=== PATIENT | male | born 1935 | race African-American/Black ===

== ENCOUNTER 2016-07-24 13:23 | Emergency (ER) | payer MEDICARE ==
[~2016-07-24] VITALS: Ht 177.8 cm; Wt 74.8 kg
[~2016-07-24 13:23] MED LIST: AMLO10TA4 PO; ASPI325T4 PO; CYCL10TA2 PO; MIR; OXYC5TAB PO; feosol; miralax; senna PO; tylenol PO
[2016-07-24 13:44] VITALS: BP 169/77
[2016-07-24 14:34] LABS: BASO % 1 % (0-3); EOS % 3 % (0-3); HEMATOCRIT 39.3 % (39.0-53.0); HEMOGLOBIN 13.3 g/dL (13.0-17.5); LYMPH # 1.9 x10^3/uL (1.0-4.8); LYMPH % 27 % (24-48); MEAN CORPUSCULAR HEMOGLOBIN 31 pg (25-35); MEAN CORPUSCULAR HGB CONC 34 g/dL (31-37); MEAN CORPUSCULAR VOLUME 90 fL (79-100); MONO % 11 % (0-9); NEUT % 58 % (31-73); PLATELET COUNT 364 x10^3/uL (140-400); RED BLOOD COUNT 4.36 x10^6/uL (4.30-5.70); WHITE BLOOD COUNT 7.1 x10^3/uL (4.0-11.0)
--- NOTE | 2016-07-24 15:51 | RAD ---
Bilateral shoulders, 07/24/2016: History: Shoulder pain There are moderate degenerative changes at the left glenohumeral joint. There is more extensive degenerative change at the AC joint with periarticular calcifications. There is spurring and soft tissue calcification the region of the left coracoclavicular ligament. The findings are compatible with trauma and secondary degenerative change. No acute left shoulder abnormality is detected. There are moderate hypertrophic degenerative changes at the right glenohumeral and acromioclavicular articulations. No acute fracture or dislocation is identified. There is a tendinous calcification adjacent to the right greater tuberosity. IMPRESSION: 1. 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 2. Moderate degenerative change at the right shoulder. 3. No acute bony abnormality is detected.
--- NOTE | 2016-07-24 15:54 | RAD ---
Right foot, 3 views, 07/24/2016: History: Right foot pain and swelling The bony structures are demineralized. There is a minimal hallux valgus deformity with mild degenerative change at the first MTP joint. There is a small bone erosion within the first metatarsal head. No acute fracture or dislocation is identified. There is mild diffuse soft tissue swelling about the foot. IMPRESSION: 1. Mild arthritic change. 2. No acute bony abnormality is detected.
[2016-07-24] MEDS ORDERED: HYDR-971 PO (16:17)
[2016-07-24] MEDS ORDERED: CEPH-264 PO (16:17)
--- NOTE | 2016-07-24 16:18 | PHYS DOC ---
Past Medical History Past Medical History: Hypertension Past Surgical History: Other Additional Past Surgical Histo: R knee surgery Smokin Pack Per Day Alcohol Use: None Drug Use: None Adult General Chief Complaint Chief Complaint: [facility] HPI Patient is a 80 year old male who presents with bilateral shoulder pain for one month. He denies any new injury to his shoulders. He's had surgery on both shoulders previously. He notes decreased range of motion in the shoulders due to pain. He denies any weakness or numbness. He has not had any chest pain or shortness of breath. Patient also complains of right foot swelling for approximately one week. He states that it is "sore." He denies any injury to the foot. He has not had any fevers. He has been taking aspirin for his pain at home. He does not currently have a PCP. Review of Systems Review of Systems Constitutional: Denies fever or chills. [] Respiratory: Denies cough or shortness of breath. [] Cardiovascular: Denies chest pain, palpitations. [] Musculoskeletal: Denies back pain. Reports bilateral shoulder pain and right foot pain. Integument: Denies rash or skin lesions. Reports right foot swelling and redness. Neurologic: Denies headache, focal weakness or sensory changes. [] All systems reviewed and negative unless otherwise stated in the HPI. Allergies Allergies Allergies Coded Allergies Type Severity Reaction Last Updated Verified No Known Drug Allergies 06/19/13 No Physical Exam Physical Exam Constitutional: Well developed, well nourished, no acute distress, non-toxic appearance. [] HENT: Normocephalic, atraumatic, oropharynx moist. [] Eyes: PERRLA, EOMI, conjunctiva normal, no discharge. [] Neck: Normal range of motion, no midline or paraspinal tenderness, supple, no stridor. [] Cardiovascular: Heart rate regular rhythm, no murmur. [] Lungs & Thorax: Bilateral breath sounds clear to auscultation without wheezes, rales, or rhonchi. [] Skin: Warm, dry, no rash. There is mild erythema and warmth of the right foot diffusely without abscess or sign of injury. Back: No midline tenderness, no CVA tenderness. [] Extremities: Bilateral shoulder tenderness at the A/C joints, ROM decreased bilaterally, no edema. 2+ radial and ulnar pulses bilaterally. Less than 2 second capillary refill in the fingers bilaterally. Light touch sensation intact in the fingers bilaterally. Equal strategic sourcing specialist strength bilaterally. There is no this of the elbows, wrists, or hands. Full range of motion of elbows, wrists, and hands. Extremities 2: Right hindfoot tenderness over the tarsal area with mild edema, erythema, and warmth. There is no tenderness of the right medial or lateral malleolus. There is no calf tenderness or swelling. 2+ DP and PT pulses. Less than 2 second capillary refill in the toes. Light touch sensation intact distally in the toes. Neurologic: Alert and oriented X 3, normal motor function, normal sensory function, no focal deficits noted. [] Psychologic: Affect normal, judgement normal, mood normal. [] Current Patient Data Vital Signs Vital Signs Date Time Temp Pulse Resp B/P Pulse Ox O2 Delivery O2 Flow Rate FiO2 07/24/16 13:44 97.8 85 18 169/77 98 Room Air 97.8 Lab Values Laboratory Tests Test 07/24/16 14:25 White Blood Count 7.1x10^3/uL (4.0-11.0) Red Blood Count 4.36x10^6/uL (4.30-5.70) Hemoglobin 13.3g/dL (13.0-17.5) Hematocrit 39.3% (39.0-53.0) Mean Corpuscular Volume 90fL (79-100) Mean Corpuscular Hemoglobin 31pg (25-35) Mean Corpuscular Hemoglobin Concent 34g/dL (31-37) Red Cell Distribution Width 15.0% (11.5-14.5) H Platelet Count 364x10^3/uL (140-400) Neutrophils (%) (Auto) 58% (31-73) Lymphocytes (%) (Auto) 27% (24-48) Monocytes (%) (Auto) 11% (0-9) H Eosinophils (%) (Auto) 3% (0-3) Basophils (%) (Auto) 1% (0-3) Neutrophils # (Auto) 4.1x10^3uL (1.8-7.7) Lymphocytes # (Auto) 1.9x10^3/uL (1.0-4.8) Monocytes # (Auto) 0.8x10^3/uL (0.0-1.1) Eosinophils # (Auto) 0.2x10^3/uL (0.0-0.7) Basophils # (Auto) 0.0x10^3/uL (0.0-0.2) Uric Acid 4.1mg/dL (3.5-7.2) Laboratory Tests 07/24/16 14:25 EKG EKG [] Radiology/Procedures Radiology/Procedures REASON: bilateral shoulder pain, decreased ROM PROCEDURE: SHOULDER BILAT 2+V Bilateral shoulders, 07/24/2016: History: Shoulder pain There are moderate degenerative changes at the left glenohumeral joint. There is more extensive degenerative change at the AC joint with periarticular calcifications. There is spurring and soft tissue calcification the region of the left coracoclavicular ligament. The findings are compatible with trauma and secondary degenerative change. No acute left shoulder abnormality is detected. There are moderate hypertrophic degenerative changes at the right glenohumeral and acromioclavicular articulations. No acute fracture or dislocation is identified. There is a tendinous calcification adjacent to the right greater tuberosity. IMPRESSION: 1. 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 2. Moderate degenerative change at the right shoulder. 3. No acute bony abnormality is detected. REASON: pain, swelling, no injury PROCEDURE: FOOT RIGHT 3V Right foot, 3 views, 07/24/2016: History: Right foot pain and swelling The bony structures are demineralized. There is a minimal hallux valgus deformity with mild degenerative change at the first MTP joint. There is a small bone erosion within the first metatarsal head. No acute fracture or dislocation is identified. There is mild diffuse soft tissue swelling about the foot. IMPRESSION: 1. Mild arthritic change. 2. No acute bony abnormality is detected. Course & Med Decision Making Course & Med Decision Making Pertinent Labs and Imaging studies reviewed. (See chart for details) Patient presents with atraumatic pain in the shoulders in the right foot. There is swelling, erythema, and warmth of the right foot. There are no acute findings on x-rays of the shoulders or foot. There is no leukocytosis or elevated uric acid on laboratory evaluation. The patient is discharged home with prescription for Keflex for right foot cellulitis and Van Etten for pain. He is given contact information for orthopedics for follow-up regarding his shoulder pain. Instructed to follow-up with his PCP in the next 2-3 days regarding the right foot swelling. Return precautions were discussed. He verbalizes understanding and agrees with plan. Yary Disclaimer Yary Disclaimer This electronic medical record was generated, in whole or in part, using a voice recognition dictation system. Departure Departure Impression: Primary Impression: Shoulder pain, bilateral Additional Impression: Cellulitis of foot, right Disposition: 01 HOME, SELF-CARE Condition: STABLE Referrals: BALAJI CANALES MD Patient Instructions: Cellulitis, [id number], Shoulder Pain, [id number] Additional Instructions: You appear to have an infection in the right foot causing the pain, swelling, and redness. Please complete all of the prescribed antibiotics, even if your foot is improving. Please follow up with a primary care provider in 2-3 days for recheck of your foot, sooner if concerns. Please take the prescribed pain medication as directed. Do not drive or operate heavy machinery while taking pain medication. Please follow up with the orthopedic doctor listed below if your shoulder pain continues. Return to the emergency department if you have worsening pain, redness, swelling , fever, or other new or concerning symptoms. Scripts Hydrocodone/Apap 5-325 (Van Etten 5-325 Tablet)1 Each Tablet1 Tab PO PRN Q6HRS PRN PAIN #20 TAB Prov:AMADOR EASON 07/24/16 Cephalexin (Keflex)500 Mg Capsule1 Cap PO BID #20 CAP Prov:AMADOR EASON 07/24/16 Problem Qualifiers Primary Impression: Shoulder pain, bilateral Chronicity: chronic Qualified Code: M25.512 - Pain in left shoulder AMADOR EASON Jul 24, 2016 16:17
== END 2016-07-24 16:21 | disposition home or self-care (01) ==
LOC: ER 13:23
DX: M25.511 Pain in right shoulder (principal); M25.512 Pain in left shoulder; L03.115 Cellulitis of right lower limb; I10 Essential (primary) hypertension; F17.210 Nicotine dependence, cigarettes, uncomplicated
CPT/HCPCS: 36415; 73030; 73630; 84550; 85027; 99285

== ENCOUNTER 2016-11-19 13:19 | Emergency (ER) | payer BC ==
[~2016-11-19] VITALS: Ht 170.2 cm; Wt 74.8 kg
[~2016-11-19 13:19] MED LIST changes: -ASPI325T4 PO; +ASPI325T8 PO; +CEPH-264 PO; +HYDR-971 PO
[2016-11-19] MEDS ORDERED: IV NORMAL SALINE 1000ML BAG 1,000 ML IV ONE (14:00)
[2016-11-19 14:21] LABS: BASO % 1 % (0-3); EOS % 1 % (0-3); HEMATOCRIT 37.8 % (39.0-53.0); HEMOGLOBIN 12.8 g/dL (13.0-17.5); LYMPH # 1.3 x10^3/uL (1.0-4.8); LYMPH % 22 % (24-48); MEAN CORPUSCULAR HEMOGLOBIN 32 pg (25-35); MEAN CORPUSCULAR HGB CONC 34 g/dL (31-37); MEAN CORPUSCULAR VOLUME 93 fL (79-100); MONO % 16 % (0-9); NEUT % 60 % (31-73); PLATELET COUNT 258 x10^3/uL (140-400); RED BLOOD COUNT 4.07 x10^6/uL (4.30-5.70); RED CELL DISTRIBUTION WIDTH 16.5 % (11.5-14.5); WHITE BLOOD COUNT 5.8 x10^3/uL (4.0-11.0)
--- NOTE | 2016-11-19 14:24 | EKG ---
[facility] [address] [place] [address] Test Date: 2016-11-19 Test Time: 13:31:52 Pat Name: SCOT LISA Department: Room: Gender: M Research And Evaluation Analyst: : 1935 Requested By: VANESSA SANFORD Order Number: [id number] Reading MD: Shahram Hanson Measurements Intervals [place] Rate: 88 P: 10 MT: 168 QRS: -16 QRSD: 88 T: 41 QT: 360 QTc: 439 Interpretive Statements SINUS RHYTHM CONSISTENT WITH ANTEROSEPTAL INFARCT PROBABLY OLD Electronically Signed On 11-20-2016 11:09:40 CDT by Shahram Hanson
[2016-11-19 14:30] VITALS: BP 132/76
[2016-11-19 14:32] LABS: CREATININE 1.2 mg/dL (0.7-1.3); GFR 70.5; POTASSIUM 3.7 mmol/L (3.5-5.1)
--- NOTE | 2016-11-19 14:32 | PHYS DOC ---
Past Medical History Past Medical History: Hypertension Past Surgical History: Other Additional Past Surgical Histo: R knee surgery Alcohol Use: None Drug Use: None Adult General Chief Complaint Chief Complaint: generalized weakness HPI HPI Patient is a 81 year old male who presents with generalized weakness. Patient stated it started yesterday while sitting. He denies any focal weakness, no chest pain or shortness of breath, no nausea or vomiting, no abdominal pain, no dysuria or increased urinary frequency, no change in bowel. Denies fevers, denies significant exertion, states he was sitting on his front porch and the heat but otherwise no excessive heat exposure. Patient has distant history of CVA, no residual weakness. Review of Systems Review of Systems Constitutional: Denies fever or chills [] Eyes: Denies change in visual acuity, redness, or eye pain [] HENT: Denies nasal congestion or sore throat [] Respiratory: Denies cough or shortness of breath [] Cardiovascular: Denies chest pain GI: Denies abdominal pain, nausea, vomiting, bloody stools or diarrhea [] : Denies dysuria or hematuria [] Musculoskeletal: Denies back pain or joint pain [] Integument: Denies rash or skin lesions [] Neurologic: Denies headache, focal weakness or sensory changes [] Current Medications Current Medications Current Medications Medications (Trade) Dose Ordered Sig/Beny Start Time Stop Time Status Last Admin Dose Admin Ibuprofen (Motrin) 600 mg 1X ONCE 11/19/16 15:15 11/19/16 15:16 Sodium Chloride 1,000 ml @ 1,000 mls/hr 1X ONCE 11/19/16 14:00 11/19/16 14:59 DC 11/19/16 14:12 1,000 MLS/HR Allergies Allergies Allergies Coded Allergies Type Severity Reaction Last Updated Verified No Known Drug Allergies 06/19/13 No Physical Exam Physical Exam Constitutional: Well developed, well nourished, no acute distress, non-toxic appearance. [] HENT: Normocephalic, atraumatic, bilateral external ears normal, oropharynx slightly dry, no oral exudates, nose normal. [] Eyes: PERRLA, EOMI, conjunctiva normal, no discharge. [] Neck: Normal range of motion, no tenderness, supple, no stridor. [] Cardiovascular:Heart rate regular rhythm, no murmur [] Lungs & Thorax: Bilateral breath sounds clear to auscultation, no wheeze, crackles or rhonchi appreciated Abdomen: Bowel sounds normal, soft, no tenderness, no masses, no pulsatile masses. [] Skin: Warm, dry, no erythema, no rash. [] Back: No tenderness, no CVA tenderness. [] Extremities: No tenderness, no cyanosis, no clubbing, ROM intact, no edema. [] Neurologic: Alert and oriented X 3, normal motor function, normal sensory function, no focal deficits noted. 5 over 5 bilateral handgrip, hip flexors, plantar and dorsiflex, normal distal sensory, cranial nerves II through XII intact Psychologic: Affect normal, judgement normal, mood normal. [] Current Patient Data Vital Signs Vital Signs Date Time Temp Pulse Resp B/P (MAP) Pulse Ox O2 Delivery O2 Flow Rate FiO2 11/19/16 13:22 98.3 89 18 137/80 (99) 96 Room Air 98.3 Lab Values Laboratory Tests Test 11/19/16 14:16 White Blood Count 5.8 x10^3/uL (4.0-11.0) Red Blood Count 4.07 x10^6/uL (4.30-5.70) L Hemoglobin 12.8 g/dL (13.0-17.5) L Hematocrit 37.8 % (39.0-53.0) L Mean Corpuscular Volume 93 fL (79-100) Mean Corpuscular Hemoglobin 32 pg (25-35) Mean Corpuscular Hemoglobin Concent 34 g/dL (31-37) Red Cell Distribution Width 16.5 % (11.5-14.5) H Platelet Count 258 x10^3/uL (140-400) Neutrophils (%) (Auto) 60 % (31-73) Lymphocytes (%) (Auto) 22 % (24-48) L Monocytes (%) (Auto) 16 % (0-9) H Eosinophils (%) (Auto) 1 % (0-3) Basophils (%) (Auto) 1 % (0-3) Neutrophils # (Auto) 3.5 x10^3uL (1.8-7.7) Lymphocytes # (Auto) 1.3 x10^3/uL (1.0-4.8) Monocytes # (Auto) 0.9 x10^3/uL (0.0-1.1) Eosinophils # (Auto) 0.1 x10^3/uL (0.0-0.7) Basophils # (Auto) 0.0 x10^3/uL (0.0-0.2) Sodium Level 134 mmol/L (136-145) L Potassium Level 3.7 mmol/L (3.5-5.1) Chloride Level 101 mmol/L (98-107) Carbon Dioxide Level 25 mmol/L (21-32) Anion Gap 8 (6-14) Blood Urea Nitrogen 11 mg/dL (8-26) Creatinine 1.2 mg/dL (0.7-1.3) Estimated GFR (Cockcroft-Gault) 70.5 BUN/Creatinine Ratio 9 (6-20) Glucose Level 103 mg/dL (70-99) H Calcium Level 9.0 mg/dL (8.5-10.1) Total Bilirubin 0.5 mg/dL (0.2-1.0) Aspartate Amino Transferase (AST) 16 U/L (15-37) Alanine Aminotransferase (ALT) 12 U/L (16-63) L Alkaline Phosphatase 90 U/L (46-116) Troponin I Quantitative < 0.017 ng/mL (0.000-0.055) Total Protein 7.7 g/dL (6.4-8.2) Albumin 3.1 g/dL (3.4-5.0) L Albumin/Globulin Ratio 0.7 (1.0-1.7) L Laboratory Tests 11/19/16 14:16 Laboratory Tests 11/19/16 14:16 EKG EKG [] Radiology/Procedures Radiology/Procedures [] Course & Med Decision Making Course & Med Decision Making Pertinent Labs and Imaging studies reviewed. (See chart for details) Patient given IV fluids, labs and urine ordered. Daughter reports that patient has not been drinking much water, thinks he is likely just dehydrated. He has no signs or symptoms of a CVA, no clear signs of infection. Labs and urinalysis ordered Patient was unable to urinate, straight catheter ordered. His labs do not show significant hydration. Ibuprofen was given for his shoulder pain. Transferred to Dr. Iglesias at 1500 pending urinalysis. Dragon Disclaimer Dragon Disclaimer This electronic medical record was generated, in whole or in part, using a voice recognition dictation system. Departure Departure Impression: Primary Impression: Weakness Referrals: STEFANIE PATE MD (PCP) VANESSA SANFORD MD Nov 19, 2016 14:32
[2016-11-19 14:37] LABS: ALBUMIN 3.1 g/dL (3.4-5.0); ALBUMIN/GLOBULIN RATIO 0.7 (1.0-1.7); TOTAL BILIRUBIN 0.5 mg/dL (0.2-1.0); TOTAL PROTEIN 7.7 g/dL (6.4-8.2)
[2016-11-19 15:08] LABS: BILIRUBIN,URINE NEGATIVE (NEG); GLUCOSE,URINE NEGATIVE (NEG); NITRITE,URINE POSITIVE (NEG); PROTEIN,URINE NEGATIVE (NEG-TRACE)
[2016-11-19] MEDS ORDERED: IBUPROFEN 600 MG TABLET. PO ONE (15:15)
[2016-11-19 15:23] LABS: BACTERIA,URINE FEW /HPF (0-FEW); RBC,URINE RARE /HPF (0-2); SQUAMOUS EPITHELIAL CELL,UR FEW /LPF
[2016-11-19] MEDS ORDERED: LEVO500T59 PO (15:48)
== END 2016-11-19 16:10 | disposition home or self-care (01) ==
LOC: ER 13:19
DX: R53.1 Weakness (principal); N39.0 Urinary tract infection, site not specified; I10 Essential (primary) hypertension; Z86.73 Personal history of transient ischemic attack (TIA), and cerebral infarction without residual deficits
CPT/HCPCS: 36415; 80053; 81001; 84484; 85027; 87086; 93005; 96360; 96361; 99285; J7030

== ENCOUNTER 2020-02-11 12:37 | Emergency (ER) | payer BC ==
[~2020-02-11] VITALS: Ht 170.2 cm; Wt 167.0 kg
[~2020-02-11 12:37] MED LIST changes: +HYDR-3164 PO; -HYDR-971 PO; +LEVO500T59 PO; -OXYC5TAB PO; +OXYC5TAB4 PO
[2020-02-11 13:08] VITALS: BP 132/76
--- NOTE | 2020-02-11 13:41 | RAD ---
Right elbow x-rays 3 views HISTORY: Right elbow injury and pain. FINDINGS: No abnormal elevation of the fat pads to suggest the presence of a joint effusion. No fracture. No dislocation. Osteoarthritis with bone spurring. There are tiny periarticular ossicles present. There appears to be some periosteal calcification above the medial humeral condyle and AP view there may be some overlying soft tissue reticulation from edema, these changes could indicate a chronic inflammatory process, there is no discrete bone erosion or destruction, and no lytic or sclerotic bone lesion evident. IMPRESSION: 1. No acute osseous injury. Osteoarthritis. 2. Mild periosteal reaction above the medial humeral epicondyles and mild overlying soft tissue reticulation which could be edema. This may indicate underlying stress reaction or other inflammatory process. No discrete bone lesion evident. If pain persists consider further assessment with bone scan imaging and/or MRI. Otherwise consider x-ray follow-up in 3-4 months. Electronically signed by: Galo Major MD (02/11/2020 1:38 PM) [id number]
[2020-02-11] MEDS ORDERED: PRED50TA PO (14:20)
--- NOTE | 2020-02-11 14:21 | PHYS DOC ---
Past Medical History Past Medical History: Arthritis, Hypertension (EDILBERTO AVILA APRN) Past Surgical History: Other Additional Past Surgical Histo: R knee surgery (EDILBERTO AVILA APRN) Smoking Status: Current Every Day Smoker Alcohol Use: None Drug Use: None (EDILBERTO AVILA APRN) General Adult EDM: Chief Complaint: UPPER EXTREMITY PAIN HPI: HPI: Patient is a 84 year old male with history of hypertension, arthritis, who presents to the ED today complaining of a throbbing 9 out of 10 right elbow pain that began a week ago. Patient denies any injury. Patient reports the pain is worse on abduction and adduction of the right elbow. He states his been taking meloxicam from his PCP with minimal relief. Denies any pain radiating to the upper extremity. Denies any numbness or tingling today affected extremity. (EDILBERTO AVILA APRN) Review of Systems: Review of Systems: Constitutional: Denies fever or chills. [] Eyes: Denies change in visual acuity. [] HENT: Denies nasal congestion or sore throat. [] Respiratory: Denies cough or shortness of breath. [] Cardiovascular: Denies chest pain or edema. [] GI: Denies abdominal pain, nausea, vomiting, bloody stools or diarrhea. [] : Denies dysuria. [] Musculoskeletal: Reports right elbow pain Integument: Denies rash. [] Neurologic: Denies headache, focal weakness or sensory changes. [] Psychiatric: Denies depression or anxiety. [] (EDILBERTO AVILA APRN) Heart Score: Risk Factors: Risk Factors: DM, Current or recent (<one month) smoker, HTN, HLP, family history of CAD, obesity. Risk Scores: Score 0 - 3: 2.5% MACE over next 6 weeks - Discharge Home Score 4 - 6: 20.3% MACE over next 6 weeks - Admit for Clinical Observation Score 7 - 10: 72.7% MACE over next 6 weeks - Early Invasive Strategies (EDILBERTO AVILA APRN) Allergies: Allergies: Allergies Coded Allergies Type Severity Reaction Last Updated Verified No Known Drug Allergies 06/19/13 No (EDILBERTO AVILA APRN) Physical Exam: PE: Constitutional: Well developed, well nourished, no acute distress, non-toxic appearance. [] HENT: Normocephalic, atraumatic, bilateral external ears normal, oropharynx moist, no oral exudates, nose normal. [] Eyes: PERRLA, EOMI, conjunctiva normal, no discharge. [] Neck: Normal range of motion, no tenderness, supple, no stridor. [] Cardiovascular:Heart rate regular rhythm, no murmur [] Lungs & Thorax: Bilateral breath sounds clear to auscultation [] Abdomen: Bowel sounds normal, soft, no tenderness, no masses, no pulsatile masses. [] Skin: Warm, dry, no erythema, no rash. [] Back: No tenderness, no CVA tenderness. [] Extremities: Right elbow with no obvious deformity, diffuse soft tissue swelling noted on the elbow. Tenderness diffusely around the elbow especially during range of motion. Adequate passive range of motion to the right elbow. Adequate radial, medial, ulnar sensation to the right upper extremity. +2 right radial pulse. Cap refill less than 2 seconds the right fingers. Neurologic: Alert and oriented X 3, normal motor function, normal sensory function, no focal deficits noted. [] Psychologic: Affect normal, judgement normal, mood normal. [] (EDILBERTO AVILA APRN) Current Patient Data: Vital Signs: Vital Signs Date Time Temp Pulse Resp B/P (MAP) Pulse Ox O2 Delivery O2 Flow Rate FiO2 02/11/20 13:08 98.1 87 16 132/76 (94) 96 Room Air 98.1 (EDILBERTO AVILA APRN) EKG: EKG: [] (EDILBERTO AVILA APRN) Radiology/Procedures: Radiology/Procedures: []PROCEDURE: ELBOW RIGHT 3V Right elbow x-rays 3 views HISTORY: Right elbow injury and pain. FINDINGS: No abnormal elevation of the fat pads to suggest the presence of a joint effusion. No fracture. No dislocation. Osteoarthritis with bone spurring. There are tiny periarticular ossicles present. There appears to be some periosteal calcification above the medial humeral condyle and AP view there may be some overlying soft tissue reticulation from edema, these changes could indicate a chronic inflammatory process, there is no discrete bone erosion or destruction, and no lytic or sclerotic bone lesion evident. IMPRESSION: 1. No acute osseous injury. Osteoarthritis. 2. Mild periosteal reaction above the medial humeral epicondyles and mild overlying soft tissue reticulation which could be edema. This may indicate underlying stress reaction or other inflammatory process. No discrete bone lesion evident. If pain persists consider further assessment with bone scan imaging and/or MRI. Otherwise consider x-ray follow-up in 3-4 months. Electronically signed by: Bhavana Major MD (02/11/2020 1:38 PM) [id number] DICTATED and SIGNED BY: BHAVANA MAJOR MD DATE: 02/11/20 1338 (EDILBERTO AVILA APRN) Course & Med Decision Making: Course & Med Decision Making Pertinent Labs and Imaging studies reviewed. (See chart for details) This is a 84-year-old male patient presenting to the ED today with right elbow pain, no known injury. Right elbow x-rays interpreted by radiologist were negative for any acute findings. Patient already on meloxicam. Kishore bandage applied to the right elbow by the ED RN, neurovascular exam is intact. Ice elevation encouraged. Given prescription for Medrol Dosepak. Follow-up with orthopedic doctor in 1 to 2 weeks (EDILBERTO AVILA APRN) Dragon Disclaimer: Dragon Disclaimer: This electronic medical record was generated, in whole or in part, using a voice recognition dictation system. (EDILBERTO AVILA APRN) Departure Departure Impression: Primary Impression: Right elbow pain Disposition: HOME, SELF-CARE Condition: STABLE Referrals: BALAJI CANALES MD follow up in 1-2 weeks Patient Instructions: Elbow Exercises, Generic-SportsMed Additional Instructions: You were seen for right elbow pain, your right elbow x-rays were negative for any acute findings. Take the prescribed medications as ordered. Follow-up with your own doctor or the provided orthopedic doctor in 1 to 2 weeks. Try to ice and elevate the extremity. Scripts Prednisone (PREDNISONE) 50 Mg Tablet 1 TAB PO DAILY, #5 TAB Prov: EDILBERTO AVILA APRN 02/11/20 Justicifation of Admission Dx: Justifications for Admission: Justification of Admission Dx: N/A (EDILBERTO AVILA APRN) Attending Signature Attending Signature I have reviewed the PA/SHELLFISH HARVESTER's note and plan of care. I was available for consultation as needed during the patient's visit in the emergency department. I agree with the clinical impression, plan, and disposition. (GEORGE STARK DO) EDILBERTO AVILA APRN Feb 11, 2020 14:21 GEORGE STARK DO Feb 12, 2020 06:18
== END 2020-02-11 14:32 | disposition home or self-care (01) ==
LOC: ER 12:37
DX: M25.521 Pain in right elbow (principal); R20.2 Paresthesia of skin; M19.90 Unspecified osteoarthritis, unspecified site; I10 Essential (primary) hypertension; F17.200 Nicotine dependence, unspecified, uncomplicated; Z98.890 Other specified postprocedural states
CPT/HCPCS: 73080; 99283

== ENCOUNTER 2021-01-21 09:32 | Emergency (ER) | payer BC ==
[~2021-01-21] VITALS: Ht 180.3 cm; Wt 81.8 kg
[~2021-01-21 09:32] MED LIST changes: +PRED50TA PO
[2021-01-21] MEDS ORDERED: HYDROcodone/APAP 5/325MG 1 TAB TABLET PO ONE (13:00)
--- NOTE | 2021-01-21 13:08 | PHYS DOC ---
Past Medical History Past Medical History: Arthritis, Hypertension (MICHELE OSBORNE APRN) Past Surgical History: Other Additional Past Surgical Histo: R knee surgery (MICHELE OSBORNE APRN) Smoking Status: Current Every Day Smoker Alcohol Use: None Drug Use: None (MICHELE OSBORNE APRN) General Adult EDM: Chief Complaint: KNEE SWELLING HPI: HPI: Patient is a 85 year old male who presents with states last night his right knee started to swell up and is painful to walk on. He is using a crutch as of cane to help him walk. He does have full range of motion over the extremity joint. There is no joint laxity. There is some tenderness over the patella itself. Patient states the knee is swollen but it does not look to be swollen. Patient states with movement the pain is worse. Rates his aching nonradiating pain about 8 out of 10. Patient has a history of arthritis and hypertension. (MICHELE OSBORNE DIRECTOR IMMUNOLOGY) Review of Systems: Review of Systems: Constitutional: Denies fever or chills. [] Eyes: Denies change in visual acuity. [] HENT: Denies nasal congestion or sore throat. [] Respiratory: Denies cough or shortness of breath. [] Cardiovascular: Denies chest pain or +right knee edema. [] GI: Denies abdominal pain, nausea, vomiting, bloody stools or diarrhea. [] : Denies dysuria. [] Musculoskeletal: Denies back pain or +Right knee joint pain. [] Integument: Denies rash. [] Neurologic: Denies headache, focal weakness or sensory changes. [] Endocrine: Denies polyuria or polydipsia. [] Lymphatic: Denies swollen glands. [] Psychiatric: Denies depression or anxiety. [] (MICHELE OSBORNE DIRECTOR IMMUNOLOGY) Heart Score: C/O Chest Pain: No Risk Factors: Risk Factors: DM, Current or recent (<one month) smoker, HTN, HLP, family history of CAD, obesity. Risk Scores: Score 0 - 3: 2.5% MACE over next 6 weeks - Discharge Home Score 4 - 6: 20.3% MACE over next 6 weeks - Admit for Clinical Observation Score 7 - 10: 72.7% MACE over next 6 weeks - Early Invasive Strategies (BAFMICHELE MOONEY APRN) Current Medications: Current Medications Medications (Trade) Dose Ordered Sig/Beny Start Time Stop Time Status Last Admin Dose Admin Acetaminophen/ Hydrocodone Bitart (Lortab 5/325) 1 tab 1X ONCE 01/21/21 13:00 01/21/21 13:01 DC (MICHELE OSBORNE APRN) Allergies: Allergies: Allergies Coded Allergies Type Severity Reaction Last Updated Verified No Known Drug Allergies 06/19/13 No (MICHELE OSBORNE APRN) Physical Exam: PE: Constitutional: Well developed, well nourished, no acute distress, non-toxic appearance. [] HENT: Normocephalic, atraumatic, bilateral external ears normal, oropharynx moist, no oral exudates, nose normal. [] Eyes: PERRLA, EOMI, conjunctiva normal, no discharge. [] Neck: Normal range of motion, no tenderness, supple, no stridor. [] Cardiovascular:Heart rate regular rhythm, no murmur [] Lungs & Thorax: Bilateral breath sounds clear to auscultation [] Abdomen: Bowel sounds normal, soft, no tenderness, no masses, no pulsatile masses. [] Skin: Warm, dry, no erythema, no rash. [] Back: No tenderness, no CVA tenderness. [] Extremities: Right anterior patella tenderness, no cyanosis, no clubbing, ROM in tact but painful, 1+ edema. [] Neurologic: Alert and oriented X 3, normal motor function, normal sensory f unction, no focal deficits noted. [] Psychologic: Affect normal, judgement normal, mood normal. [] (MICHELE OSBORNE APRN) Current Patient Data: Vital Signs: Vital Signs Date Time Temp Pulse Resp B/P (MAP) Pulse Ox O2 Delivery O2 Flow Rate FiO2 01/21/21 12:24 97.7 62 16 121/69 (94) 98 Room Air 97.7 (MICHELE OSBORNE APRN) EKG: EKG: [] (MICHELE OSBORNE APRN) Radiology/Procedures: Radiology/Procedures: [] Impression: [facility] [address] [place] [address] IMAGING REPORT Signed PATIENT: CAITY LISABOOUNT: [id number] : 1935 LOCATION: ER AGE: 85 SEX: M EXAM STATUS: REG ER ORD. PHYSICIAN: MICHELE OSBORNE APRN REASON: pain and swelling PROCEDURE: KNEE RIGHT 4V Study: XR KNEE 4 VIEWS WITH PATELLA_RT Indication: Pain and swelling. Comparison: None. Findings: No acute fracture. No traumatic malalignment. Advanced tricompartmental osteoarthrosis with greatest involvement of the lateral femorotibial compartment where there is severe joint space collapse/[id number]. Chondrocalcinosis. Several loose bodies. Knee joint effusion. Vascular calcifications and osteopenia. Impression: 1. No acute fracture. 2. 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 3. Knee joint effusion with loose bodies. Electronically signed by: MAVIS ALSTON MD (01/21/2021 1:37 PM) [id number] DICTATED and SIGNED BY: MAVIS ALSTON MD DATE: 01/21/21 [id number] (MICHELE OSBORNE APRN) Course & Med Decision Making: Course & Med Decision Making Pertinent Labs and Imaging studies reviewed. (See chart for details) See HPI. Alert and oriented x4. Ambulatory with a steady gait using a crutch on that right side to help him walk. He does have full range of motion there is no laxity in the knee joint. There is no redness or warmth. Afebrile. Slight tenderness over the knee patella anteriorly with palpation but tolerable to the patient. Patient states he has not taken any pain medications to help his pain. He is given hydrocodone in the ED. [] (MICHELE OSBORNE APRN) Course & Med Decision Making I have participated in the care of this patient and I have reviewed and agree with all pertinent clinical information above including history, exam, and recommendations. Christopher Pennington DO (CHRISTOPHER PENNINGTON DO) Yary Disclaimer: Yary Disclaimer: This electronic medical record was generated, in whole or in part, using a voice recognition dictation system. (MICHELE OSBORNE APRN) Departure Departure Impression: Primary Impression: Arthritis Disposition: 01 HOME / SELF CARE / HOMELESS Condition: STABLE Referrals: Mady PATE MD (PCP) PRADEEP ELENA MD Patient Instructions: Osteoarthritis Additional Instructions: Follow up with your primary care provider or orthopedics as soon as possible. Use Ice to help with your pain. Scripts Hydrocodone Bit/Acetaminophen (HYDROCODONE-APAP 5-325 ) 1 Tab Tablet 1 TAB PO PRN Q6HRS PRN for PAIN, #10 TAB 0 Refills Prov: MICHELE OSBORNE APRN 01/21/21 MICHELE OSBORNE APRN Jan 21, 2021 13:08 CHRISTOPHER PENNINGTON DO Jan 21, 2021 16:05
--- NOTE | 2021-01-21 13:39 | RAD ---
Study: XR KNEE 4 VIEWS WITH PATELLA_RT Indication: Pain and swelling. Comparison: None. Findings: No acute fracture. No traumatic malalignment. Advanced tricompartmental osteoarthrosis with greatest involvement of the lateral femorotibial compar tment where there is severe joint space collapse/[id number]. Chondrocalcinosis. Several loose mario s. Knee joint effusion. Vascular calcifications and osteopenia. Impression: 1. No acute fracture. 2. 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 3. Knee joint effusion with loose bodies. Electronically signed by: MAVIS ALSTON MD (01/21/2021 1:37 PM) [id number]
[2021-01-21] MEDS ORDERED: HYDR-2761 PO (13:49)
[2021-01-21 14:25] VITALS: BP 116/61
== END 2021-01-21 14:26 | disposition home or self-care (01) ==
LOC: ER 09:32
DX: M17.11 Unilateral primary osteoarthritis, right knee (principal); I10 Essential (primary) hypertension; F17.200 Nicotine dependence, unspecified, uncomplicated
CPT/HCPCS: 73564; 99283

== ENCOUNTER → 2021-10-16 | Outpatient (CLI) | payer BC ==
[2021-05-05 10:30] VITALS: BP 149/75
[~2021-10-16] MED LIST changes: +ASPI81TA59 PO; +BENZ-8 PO; +CYCL10TA19 PO; -CYCL10TA2 PO; +HYDR-2761 PO; +TAMS0.4C97 PO
--- NOTE | 2021-10-16 16:17 | RAD ---
EXAM: Cervical spine MRI without contrast. HISTORY: Weakness. Stenosis. TECHNIQUE: Multiplanar, multisequence magnetic resonance imaging of the cervical spine was performed without contrast. COMPARISON: None. FINDINGS: There is cervical kyphosis. There is mild multilevel degenerative listhesis. There is degen erative endplate remodeling with disc space narrowing and osteophytosis primarily at the lower cervic al levels. 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 No co nvincing spinal cord edema or myelomalacia is seen. There is heterogeneous decreased T1 marrow signal intensity, a nonspecific finding. There is marrow e gurinder at the base of the dens and involving the anterior arch of C1. No convincing fracture line is se en.. At C2-C3, there is mild right and severe left facet arthropathy. There is no stenosis. At C3-C4, there is a left lateral recess to foraminal disc protrusion and osteophyte complex superimp osed on endplate remodeling. There is severe bilateral facet arthropathy. There is left greater than right uncovertebral arthropathy. There is moderate right and severe left foraminal stenosis. There is mild central canal stenosis measuring 8.5 mm in anterior posterior dimension. At C4-C5, there is a right posterior lateral disc osteophyte complex. There is severe right facet art hropathy. There is right uncovertebral arthropathy. There is severe right foraminal stenosis. There i s mild central canal stenosis measuring 9.0 and then in anterior posterior dimension. At C5-C6, there are bilateral posterior lateral disc osteophyte complexes superimposed on a disc bulg e and endplate osteophytosis. There is mild bilateral facet arthropathy. There is uncovertebral arthr opathy. There is severe left greater than right foraminal stenosis. There is moderate central canal s tenosis measuring 7.5 mm in anterior posterior dimension. At C6-C7, there aren't left greater than right posterior lateral disc osteophyte complexes superimpos ed on a disc bulge and endplate osteophytosis. There is mild bilateral facet arthropathy. There is bi lateral uncovertebral arthropathy. There is severe left greater than right foraminal stenosis. There is moderate to severe central canal stenosis measuring 6.5 mm in anterior posterior dimension. At C7-T1, there is a broad-based right paracentral to foraminal disc protrusion and osteophyte comple x superimposed on endplate. There is mild to moderate bilateral facet arthropathy. There is right unc overtebral arthropathy. There is severe right foraminal stenosis. There is deformation of the right v entral aspect of spinal cord and mild central canal stenosis measuring 7.7 mm in anterior posterior d imension. At T1-T2, there are bilateral posterior lateral disc osteophyte complexes superimposed on endplate re modeling. There is mild right and moderate left facet arthropathy. There is moderate right foraminal stenosis. IMPRESSION: 1. Marrow edema involving the dens and adjacent anterior arch of C1. This may be degenerative or due to a stress reaction. No convincing fracture line is seen. However, if there is a history of trauma, CT can be performed for characterization. 2. Multilevel degenerative change throughout the cervical and upper thoracic spine, described in felix il above. This results in significant foraminal and central canal stenosis at the aforementioned leve ls. The central canal stenosis is most significant at C6-C7. 3. 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 No spin al cord edema or myelomalacia seen. 4. Decreased vertebral T1 marrow signal, a nonspecific finding which can be seen with anemia and ciga rette smoking. This is not clearly within limits to suggest a neoplastic marrow infiltrative process. Electronically signed by: Marisabel Baig MD (10/16/2021 4:14 PM) [id number]
== END ==
LOC: MRI 09:50
PROVIDERS: ATTEND Family Medicine
DX: M47.812 Spondylosis without myelopathy or radiculopathy, cervical region (principal); M47.814 Spondylosis without myelopathy or radiculopathy, thoracic region; M50.23 Other cervical disc displacement, cervicothoracic region; M48.8X3 Other specified spondylopathies, cervicothoracic region; M48.03 Spinal stenosis, cervicothoracic region; M25.78 Osteophyte, vertebrae; M40.292 Other kyphosis, cervical region; M43.12 Spondylolisthesis, cervical region
CPT/HCPCS: 72141